=== PATIENT | male | born 1940 | race African-American/Black ===

== ENCOUNTER 2023-11-08 17:33 | Inpatient (IN) | payer OTHER ==
[2023-11-08 18:21] VITALS: BMI 25.4
[2023-11-08] MEDS: SODIUM CHLORIDE 0.9% 500 ML INFUS.BAG IV ONE ×2 (18:57→21:47)
[2023-11-08 19:13] LABS: BASO % 0.9 % (0-2.0); EOS % 0.5 % (0-4.5); HEMATOCRIT 32.2 % (35.4-49); HEMOGLOBIN 10.7 GM/dL (11.7-16.9); MCHC 33.2 g/dl (32.0-35.9); MEAN CELL VOLUME 84.4 fl (80-96); MEAN PLT VOLUME 6.9 fl (7.5-11.1); MONO % 6.1 % (3.8-10.2); NEUT % 76.5 % (42.8-82.8); PLATELET COUNT 551 10^3/uL (134-434); RBC 3.81 M/mm3 (4.00-5.60); RDW 15.6 % (11.9-15.9); WHITE BLOOD COUNT 14.1 K/mm3 (4.0-10.0)
[2023-11-08 19:33] LABS: POTASSIUM 4.7 mmol/L (3.5-5.1)
[2023-11-08 19:34] LABS: CALCIUM 8.7 mg/dL (8.5-10.1)
[2023-11-08 19:35] LABS: ALBUMIN 2.1 g/dl (3.4-5.0); BLOOD UREA NITROGEN 17.5 mg/dL (7-18); MAGNESIUM 1.6 mg/dL (1.8-2.4)
[2023-11-08 19:38] LABS: CREATININE 0.9 mg/dL (0.55-1.3)
[2023-11-08 19:40] LABS: BILIRUBIN,TOTAL 0.5 mg/dL (0.2-1); TOT PROT 7.9 g/dl (6.4-8.2)
[2023-11-08] MEDS ORDERED: FAMOTIDINE 10 MG/ML VIAL IVPB ONE (21:40)
[2023-11-08] MEDS ORDERED: MAGNESIUM 1GM/D5W - 1 GM/100 ML IVPB IVPB ONE (21:40)
[2023-11-08 21:41] LABS: EPI CELLS 1 /uL (0-25.1); HYALINE CASTS 0 /uL (0-3.1); URINE APPEARANCE CLEAR; URINE BACTERIA 232 /uL (0-1359); URINE BILIRUBIN NEGATIVE (NEGATIVE); URINE COLOR YELLOW; URINE GLUCOSE (UA) NEGATIVE (NEGATIVE); URINE KETONE NEGATIVE (NEGATIVE); URINE LEUK ESTERASE 3+ (NEGATIVE); URINE NITRITE NEGATIVE (NEGATIVE); URINE PROTEIN NEGATIVE (NEGATIVE); URINE RBC 22 /uL (0-23.9); URINE WBC 1359 /uL (0-25.8)
[2023-11-08] MEDS: FAMOTIDINE 20 MG/50 ML IVPB 20 MG/50 ML MG IVPB ONE (21:47)
[2023-11-08] MEDS: MAGNESIUM SULF 50% (8.12 MEQ/2 ML-1 GM VIAL) IVPB ONE (21:47)
[2023-11-08] MEDS ORDERED: CEFTRIAXONE 1 GM/50 ML BAG ONE (22:10)
[2023-11-08] MEDS: CEFTRIAXONE 1,000 MG in DEXTROSE 5%-WATER - 50 ML IVPB ONE (22:16)
[2023-11-09] MEDS: DORZOLAMIDE 2% HCL OPHTHALMIC SOLUTION 10 ML BOTTLE OU SCH (06:47)
[2023-11-09] MEDS: TAMSULOSIN HCL 0.4 MG CAP PO SCH (08:11)
[2023-11-09 09:21] LABS: HEMATOCRIT 27.8 % (35.4-49); HEMOGLOBIN 9.3 GM/dL (11.7-16.9); MCH 28.3 pg (25.7-33.7); MCHC 33.5 g/dl (32.0-35.9); MEAN CELL VOLUME 84.3 fl (80-96); MEAN PLT VOLUME 6.8 fl (7.5-11.1); PLATELET COUNT 433 10^3/uL (134-434); RBC 3.29 M/mm3 (4.00-5.60); WHITE BLOOD COUNT 11.3 K/mm3 (4.0-10.0)
[2023-11-09 09:44] LABS: POTASSIUM 4.2 mmol/L (3.5-5.1)
[2023-11-09 09:50] LABS: CALCIUM 7.8 mg/dL (8.5-10.1)
[2023-11-09 09:51] LABS: ALBUMIN 1.9 g/dl (3.4-5.0); BLOOD UREA NITROGEN 16.6 mg/dL (7-18)
[2023-11-09 09:54] LABS: CREATININE 0.9 mg/dL (0.55-1.3)
[2023-11-09 09:55] LABS: BILIRUBIN,TOTAL 0.6 mg/dL (0.2-1); TOT PROT 6.8 g/dl (6.4-8.2)
[2023-11-09] MEDS: ACETAMINOPHEN 325 MG TABLET (FP) PO PRN (09:59)
[2023-11-09] MEDS: MEGESTROL ACETATE 400 MG/10 ML UNIT DOSE CUP PO SCH (10:00)
[2023-11-09] MEDS: PANTOPRAZOLE 20 MG TABLET PO SCH (10:00)
[2023-11-09] MEDS: CEFTRIAXONE 1 GM in DEXTROSE 5%-WATER - 50 ML IVPB SCH (10:00)
[2023-11-09] MEDS: ASCORBIC ACID 500 MG TABLET (FP) PO SCH (10:00)
[2023-11-09] MEDS: TIMOLOL 0.5% OPHTHALMIC SOL 5 ML BOTTLE OU SCH (10:01)
[2023-11-09] MEDS: FUROSEMIDE 20 MG TABLET (FP) PO SCH (10:09)
[2023-11-09] MEDS ORDERED: ACETAMINOPHEN 325 MG TABLET (FP) PO PRN (13:15)
[2023-11-09] MEDS ORDERED: oxyCODONE HCL 5 MG TABLET PO PRN (13:15)
[2023-11-09] MEDS: SODIUM CHLORIDE 1,000 ML IV SCH (13:34)
[2023-11-09 15:59] LABS: MAGNESIUM 1.8 mg/dL (1.8-2.4)
[2023-11-09 16:07] LABS: N-TERMINAL BNP 328.6 pg/ml (5-450)
[2023-11-09] MEDS: ATORVASTATIN CA 10 MG TABLET (FP) PO SCH (21:55)
[2023-11-09] MEDS: LATANOPROST 0.005% OPHTH SOLN 2.5ML BOTTLE OU SCH (22:00)
[2023-11-10] MEDS: PIPERACILLIN/TAZOB 3.375 GM 3.375 GM in DEXTROSE 5%-WATER - 50 ML IVPB SCH (09:57)
[2023-11-10] MEDS: MAGNESIUM 2GM/50ML STERILE WATER IVPB IVPB ONE (09:58)
[2023-11-10 10:10] LABS: BASO % 1.4 % (0-2.0); EOS % 1.3 % (0-4.5); HEMATOCRIT 28.1 % (35.4-49); HEMOGLOBIN 9.5 GM/dL (11.7-16.9); LYMPH % 12.8 % (8-40); MCHC 33.8 g/dl (32.0-35.9); MEAN CELL VOLUME 85.8 fl (80-96); MEAN PLT VOLUME 7.1 fl (7.5-11.1); MONO % 5.4 % (3.8-10.2); NEUT % 79.1 % (42.8-82.8); PLATELET COUNT 319 10^3/uL (134-434); RBC 3.28 M/mm3 (4.00-5.60); RDW 15.9 % (11.9-15.9); WHITE BLOOD COUNT 7.1 K/mm3 (4.0-10.0)
[2023-11-10 10:27] LABS: CHLORIDE 112 mmol/L (98-107); POTASSIUM 3.8 mmol/L (3.5-5.1); SODIUM 139 mmol/L (136-145)
[2023-11-10 10:30] LABS: ALBUMIN 1.8 g/dl (3.4-5.0); CALCIUM 8.1 mg/dL (8.5-10.1)
[2023-11-10 10:31] LABS: ANION GAP 6 mmol/L (4-13); BLOOD UREA NITROGEN 16.5 mg/dL (7-18); CO2 20 mmol/L (21-32); GLUCOSE,RANDOM 100 mg/dL (74-106)
[2023-11-10 10:34] LABS: PHOSPHOROUS 3.4 mg/dL (2.5-4.9); SGOT/AST 11 U/L (15-37); SGPT/ALT < 6 U/L (13-61)
[2023-11-10 10:35] LABS: BILIRUBIN,TOTAL 0.6 mg/dL (0.2-1); TOT PROT 6.7 g/dl (6.4-8.2)
[2023-11-10 10:36] LABS: ALK PHOS 133 U/L (45-117)
[2023-11-13 08:24] VITALS: BP 123/67; PULSE 72; RESP 18; TEMP 98.6
== END 2023-11-13 10:14 | DRG 689 ==
LOC: JER 17:33 → JERBED 21:58 → J4S 11-09 03:18
PROVIDERS: ADMIT Internal Medicine; ATTEND Internal Medicine
DX: N39.0 Urinary tract infection, site not specified (principal); G93.41 Metabolic encephalopathy; F20.89 Other schizophrenia; B96.5 Pseudomonas (aeruginosa) (mallei) (pseudomallei) as the cause of diseases classified elsewhere; E86.0 Dehydration; R00.0 Tachycardia, unspecified; D72.829 Elevated white blood cell count, unspecified; J44.9 Chronic obstructive pulmonary disease, unspecified; N40.0 Benign prostatic hyperplasia without lower urinary tract symptoms; K21.9 Gastro-esophageal reflux disease without esophagitis; E11.9 Type 2 diabetes mellitus without complications; F31.9 Bipolar disorder, unspecified; F22 Delusional disorders; E83.42 Hypomagnesemia; Z85.46 Personal history of malignant neoplasm of prostate
CPT/HCPCS: 36415; 70450-TC; 71046-TC-FY; 80053; 80061; 81003; 82728; 82962; 83036; 83540; 83550; 83735; 83880; 84100; 84439; 84443; 84466; 84484; 85025; 87086; 87186; 93005; 93010; 93306-TC; 99285-25